=== PATIENT | female | born 1980 | race African-American/Black ===

== ENCOUNTER 2017-09-07 11:46 | Inpatient (IN) | payer OTHER ==
--- NOTE | 2017-09-07 12:21 | PDOC.LDHP ---
Labor and Delivery H&P Chief complaint: other (Transfusion) HPI: 37 yo @ 22 weeks by LMP c/w 12 week sono who presents for blood transfusion. Pt has emergent cholecystectomy @ [facility] on 08/26/17 for acute cholecystitis complicated by liver laceration with 2 L EBL. Pt was followed by [facility] and I was called informing me that pt Hbg 6.9 and she has fatigue. Called pt and recommended a transfusion due to sx and . Due date: 01/11/18 Dating criteria: last menstrual period Grav: 8 Para: 6 OB History Details: 6 SVDs (one due to severe preE @ 36 weeks, h/o preE in several pregnancies) 1 SAB Current complications: other (anemia from recent surgery) Past Medical History: Asthma, h/o preE, h/o A1DM Current medications: pre-fam vitamins, iron Previous surgical history: cholecystectomy (see above) Allergies/Adverse Reactions: Allergies Allergy/AdvReac Type Severity Reaction Status Date / Time kiwi Allergy Verified 09/07/17 13:01 Social history: tobacco use - Physical Exam Vital signs reviewed and normal: yes General: resting Heart: RRR Lungs: other (slight + wheezing in lower lobes) Extremeties: no edema - OB Labs Blood type: A RH: positive Antibody Screen: negative HIV: negative RPR: negative HEPSAg: negative 1 hour GCT: unknown GBS: unknown Additional Labs: Hbg 6.9 - Assessment 22 week IUP Post operative anemia from recent cholecystectomy complicated by liver laceration AMA Tobacco use Asthma - Plan -: Admit for transfusion 1 unit PRBCs. Plan for d/c after transfusion complete. F/ U for routine OB appts and with general surgery for post op. Pt to use home albuterol PRN, will use nebulizers if needed after PRN inH.
[2017-09-07] MEDS ORDERED: diphenhydrAMINE 25 MG CAP PO SCH (12:30)
[2017-09-07] MEDS ORDERED: Acetaminophen 325 MG TAB PO SCH (12:30)
[2017-09-07 13:03] VITALS: BMI 41.5
[2017-09-07] MEDS ORDERED: Ferrous Sulfate 325 MG TAB PO SCH (17:00)
[2017-09-07 19:01] LABS: Hemoglobin 8.3 g/dL (12.0-16.0)
[2017-09-07 19:36] VITALS: BP 159/57; TEMP 99
--- NOTE | 2017-09-08 02:18 | DIS ---
ADMISSION DATE: 09/07/2017 DISCHARGE DATE: 09/07/2017 ADMISSION DIAGNOSES: 1. Symptomatic anemia. 2. A 20-week gestation. DISCHARGE DIAGNOSES: 1. Symptomatic anemia. 2. A 20-week gestation. ADMISSION AND DISCHARGE PHYSICIAN: Sarah Edward D.O. INDICATION: Status observation. BRIEF HOSPITAL COURSE: Ms. Lore Mas is a 37-year-old at 22 weeks gestation, who had re cently undergone an emergent cholecystectomy for acute cholecystitis at [facility]. Patient had a complication of a liver laceration with 2 liters of blood loss. She had followed up with her [facility] surgeon and was found to be anemic with a hemoglobin of 6.9 and symptomatic with fatigue. Her [facility] surgeon contacted me regarding the results and due to her procedure recommend the patient under go 1 unit of blood transfusion. The patient was admitted and transfused 1 unit of packed red blood c ells. Her results hemoglobin was 8.3 after transfusion and she will continue iron supplementation. MEDICATIONS: Ferrous sulfate 325 mg 3 times daily. FOLLOWUP: The patient has a scheduled obstetric follow up on 09/26/2017. ACTIVITY: No heavy lifting, pushing or pulling due to recent surgery. DIET: General. CODE: FULL.
== END 2017-09-07 19:57 | disposition home or self-care (01) | DRG 781 ==
LOC: 3SW 12:12
PROVIDERS: ADMIT Obstetrics & Gynecology; ATTEND Obstetrics & Gynecology
PROC: 30233N1 Transfusion of Nonautologous Red Blood Cells into Peripheral Vein, Percutaneous Approach (ICD-10-PCS; principal; 2017-09-07)
DX: Z3A.22 22 weeks gestation of pregnancy; O99.012 Anemia complicating pregnancy, second trimester; D64.9 Anemia, unspecified
CPT/HCPCS: 36415; 36430; 85014; 85018; 86850; 86900; 86901; A4216; P9016

== ENCOUNTER 2017-12-17 13:49 | Day surgery (SDC) | payer OTHER ==
[2017-12-17 15:50] LABS: Bilirubin Negative (Negative); Blood, Urine Negative (Negative); Clarity CLEAR (Clear); Glucose, Urine (Dipstick) Negative (Negative); Leukocyte Moderate (Negative); Nitrite Negative (Negative); Protein, Urine (Dipstick) 30 mg/dL (Neg-Trace); Specific Gravity, Urine 1.026 (1.002-1.036); pH, Urine 6.5 (5.0-9.0)
[2017-12-17 15:53] LABS: Pathc Cast-AUWi Flag 1.01 (0-2.49)
[2017-12-17 16:07] LABS: Bacteria/HPF 2+ HPF (None Seen); Hyaline Casts/LPF 7-10 HYALINE CAST LPF (0-3 Hyaline); WBC/HPF 21-50 HPF (0-3)
--- NOTE | 2017-12-17 17:14 | HP ---
DATE OF SERVICE: 12/17/2017 TIME OF SERVICE: 1640. PRESENTING COMPLAINT: Contractions and feeling like she had high blood pressures. HISTORY OF PRESENT ILLNESS: Ms. Isaacs is a 36-week and 3-day G8, P6 with an JJ of 01/11/2018. Antepartum record is not on the unit. She reports a history of elevated blood pressures with previou s pregnancies and states she thought she might have high blood pressure. She reports she has had occ asional headaches. She has no bleeding, occasional contractions and active fetus. 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 Near term with elevated blood pressures. SAB x1. Ante record is not available. PAST MEDICAL HISTORY: None. PAST SURGICAL HISTORY: None. ALLERGIES: Denies. MEDICATIONS: vitamins and baby aspirin daily. SOCIAL HISTORY: Denies tobacco, alcohol, IV drug abuse. The patient reports that she was noncomplia nt with her last visit with Dr. Edward and needs to reschedule. PHYSICAL EXAMINATION: GENERAL: Black female, in no acute distress. VITAL SIGNS: Initial blood pressure 147/80, pulse 71, respirations 20, temperature 98.7. HEENT: Within normal limits. LUNGS: Clear to auscultation bilaterally. HEART: Regular rhythm. BREASTS: No masses bilaterally. ABDOMEN: Soft and nontender with only occasional indentable contractions. Fundal height is 36 cm. FHTs 140s. Vulva without lesions. Vagina without discharge. PELVIC: Cervix 250, -2, cephalic, anterior soft. EXTREMITIES: Without clubbing, cyanosis, or edema. LABORATORY DATA: Reveals a urine with 1+ protein. This is on a very dirty clear catch with both RBC s and leukocytes, squames and bacteria. Serial blood pressures were performed, systolics ranged betw een 120s and 140s with diastolics in the 70s and 80s. DTRs are 1+. IMPRESSION: 36-37 weeks gestation. No evidence of preeclampsia at this time. PLAN: Discharge home. PIH precautions. The patient to keep close follow up with Dr. Edward with ER precautions.
== END 2017-12-17 17:00 | disposition home or self-care (01) ==
LOC: L&D/OP 13:49
PROVIDERS: ATTEND Obstetrics & Gynecology
DX: O47.03 False labor before 37 completed weeks of gestation, third trimester (principal); Z3A.36 36 weeks gestation of pregnancy
CPT/HCPCS: 81001; 99284